=== PATIENT | female | born 1990 | race Caucasian/White ===

== ENCOUNTER → 2016-07-16 | Outpatient (CLI) | payer OTHER ==
[~2016-07-16] MED LIST: ALBU2SYP9; MTR600X PO; ONDA4TAB65 PO; OXYC-57 PO; PREN1TAB29
[2016-07-16 16:57] LABS: GTGD 50 Grams
== END | disposition home or self-care (01) ==
LOC: C.LAB1850 14:50
PROVIDERS: ATTEND Obstetrics & Gynecology
DX: Z34.92 Encounter for supervision of normal pregnancy, unspecified, second trimester (principal)

== ENCOUNTER → 2016-10-05 | Outpatient (CLI) | payer OTHER ==
[2016-10-05 17:12] LABS: GTGD 50 Grams
[2016-10-05 17:15] LABS: HEMATOCRIT 35.8 % (37-47)
[2016-10-05 17:21] LABS: URINE APPEARANCE CLEAR (CLEAR); URINE BILIRUBIN NEG (NEG); URINE COLOR YELLOW; URINE EPITHELIAL CELL AUTO >30 /lpf (0-5); URINE NITRITE NEG (NEG); UROBILINOGEN NEG (NEG)
[2016-10-05 17:25] LABS: MANUAL MICROSCOPIC REQUIRED? NO; REVIEW REQ? NO
== END | disposition home or self-care (01) ==
LOC: C.LAB1850 15:14
PROVIDERS: ATTEND Obstetrics & Gynecology
DX: Z34.00 Encounter for supervision of normal first pregnancy, unspecified trimester (principal)

== ENCOUNTER 2016-11-25 07:30 | Inpatient (IN) | payer OTHER ==
[~2016-11-25] VITALS: Ht 167.6 cm; Wt 102.7 kg
[2016-12-10] MEDS ORDERED: LACTATED RINGER'S 1000ML 1,000 ML IV PRN (18:02)
[2016-12-10] MEDS ORDERED: PENICILLIN G POTASSIUM IV 6 MU in DEXTROSE 5% 250ML 250 ML IV ONE (18:45)
[2016-12-10] MEDS: LACTATED RINGER'S 1000ML 1,000 ML IV SCH (19:21)
[2016-12-10 19:40] LABS: HEMATOCRIT 35.6 % (37-47); MEAN CELL VOLUME 87.7 fL (80-100); MEAN CORPUSCULAR HEMOGLOBIN 29.6 pg (25-34); MEAN CORPUSCULAR HGB CONC 33.7 g/dl (32-36); MEAN PLATELET VOLUME 10.7 fL (7.4-10.4); PLATELET COUNT 208 K/uL (130-400); RED BLOOD COUNT 4.06 M/uL (4.2-5.4)
[2016-12-10 19:59] VITALS: Ht 167.6 cm; Wt 102.7 kg
[2016-12-10] MEDS ORDERED: ONDA4TAB65 PO (20:04)
[2016-12-10] MEDS ORDERED: PREN1TAB29 (20:04)
[2016-12-10] MEDS ORDERED: ALBU2SYP9 (20:04)
[2016-12-10] MEDS ORDERED: LACTATED RINGER'S 1000ML 500 ML IV PRN (22:01)
[2016-12-10] MEDS: OXYTOCIN 30 UNITS/500ML NSS IV PRN (22:28)
[2016-12-10] MEDS: PENICILLIN G POTASSIUM IV 3 MU in DEXTROSE 5% 100ML 100 ML IV PRN (23:25)
[2016-12-11] MEDS ORDERED: FENTANYL 2MCG/ML ROPIV 1.25MG/ML 100ML BAG EPI ONE (02:26)
[2016-12-11] MEDS ORDERED: BUPIVACAINE 0.25% 30 ML VIAL ONE (02:26)
[2016-12-11] MEDS ORDERED: EpHEDrine SULFATE INJ 50 MG/ML AMP ONE ×2 (02:26→13:35)
[2016-12-11] MEDS ORDERED: FENTANYL CITRATE INJ 50 MCG/1 ML 2 ML VIAL ONE (02:26)
[2016-12-11] MEDS ORDERED: NALOXONE HCL INJ 1 MG in SODIUM CHLORIDE 0.9% 1000ML 1,000 ML IV PRN (03:20)
[2016-12-11] MEDS ORDERED: LACTATED RINGER'S 1000ML 500 ML IV PRN (03:20)
[2016-12-11] MEDS: LACTATED RINGER'S 1000ML 1,000 ML IV SCH ×3 (03:27→11:26)
[2016-12-11] MEDS ORDERED: NALOXONE HCL INJ 0.4 MG/1 ML VIAL/CARP IV PRN (03:30)
[2016-12-11] MEDS ORDERED: NALBUPHINE HCL INJ 10 MG/ML AMP IV PRN (03:30)
[2016-12-11] MEDS ORDERED: DiphenhydrAMINE HCL 50 MG/ML VIAL IV PRN (03:30)
[2016-12-11] MEDS ORDERED: ONDANSETRON INJ 2 MG/ML 2 ML VIAL IV PRN ×2 (03:30→15:00)
[2016-12-11] MEDS: PENICILLIN G POTASSIUM IV 3 MU in DEXTROSE 5% 100ML 100 ML IV PRN ×3 (03:44→11:19)
[2016-12-11] MEDS: EpHEDrine SULFATE INJ 50 MG/ML AMP IV PRN ×2 (04:55→05:11)
[2016-12-11] MEDS: FENTANYL 2MCG/ML ROPIV 1.25MG/ML 100ML BAG EPI PRN ×2 (06:56→12:35)
[2016-12-11] MEDS: OXYTOCIN 30 UNITS/500ML NSS IV PRN (06:56)
[2016-12-11] MEDS ORDERED: OXYTOCIN 30 UNITS/500ML NSS IV PRN ×2 (10:00→17:30)
[2016-12-11] MEDS ORDERED: LACTATED RINGER'S 1000ML 1,000 ML IV SCH ×2 (13:20→14:45)
[2016-12-11] MEDS ORDERED: CITRIC ACID/SODIUM CITRATE 15 ML UDC PO ONE (13:30)
[2016-12-11] MEDS ORDERED: SODIUM CHLORIDE 0.9% INJ 10 ML VIAL ONE (13:35)
[2016-12-11] MEDS ORDERED: LIDOCAINE/EPINEPHRINE 2% 1:200,000 20 ML SDV ONE (13:35)
[2016-12-11] MEDS ORDERED: PHENYLEPHRINE HCL INJ 10 MG/ML VIAL ONE (13:35)
[2016-12-11] MEDS ORDERED: CEFAZOLIN IV 3,000 MG in DEXTROSE 5% 50ML 50 ML IV ONE (13:45)
[2016-12-11] MEDS ORDERED: BENZOCAINE 20% AER SPR 82.5 GM CAN ONE (13:48)
[2016-12-11] MEDS ORDERED: OXYTOCIN INJ 10 UNITS/ML VIAL ONE (13:59)
[2016-12-11] MEDS ORDERED: MoRPHine SULFATE PF 1 MG/ML 10 ML AMP/VIAL ONE (14:03)
[2016-12-11] MEDS ORDERED: ONDANSETRON INJ 2 MG/ML 2 ML VIAL ONE (14:21)
[2016-12-11] MEDS ORDERED: HYDROCORTISONE ACETATE 25 MG SUPP PR PRN (14:45)
[2016-12-11] MEDS ORDERED: LANOLIN OINT EXT PRN ×2 (14:45)
[2016-12-11] MEDS ORDERED: SUPERCREAM 0.870 % 15GM JAR EXT PRN (14:45)
[2016-12-11] MEDS ORDERED: SENNA 8.6 MG TAB PO PRN (14:45)
[2016-12-11] MEDS ORDERED: MAGNESIUM HYDROXIDE SUSP 30 ML UDC PO PRN (14:45)
[2016-12-11] MEDS ORDERED: BENZOCAINE 20% AER SPR 82.5 GM CAN EXT PRN (14:45)
--- NOTE | 2016-12-11 14:53 | Anesthesiology Progress Note ---
Anesthesia Post Op Note Date & Time Dec 11, 2016 at 14:52 Notes Mental Status: alert / awake / arousable, participated in evaluation Pt Amnestic to Procedure: Yes Nausea / Vomiting: adequately controlled Pain: adequately controlled Airway Patency, RR, SpO2: stable & adequate BP & HR: stable & adequate Hydration State: stable & adequate Anesthetic Complications: no major complications apparent
[2016-12-11] MEDS ORDERED: FENTANYL CITRATE INJ 50 MCG/1 ML 2 ML VIAL IV PRN (15:00)
[2016-12-11] MEDS ORDERED: MEPERIDINE HCL 25 MG/ML CARP IV PRN (15:00)
[2016-12-11] MEDS ORDERED: KETOROLAC TROMETHAMINE 30 MG/ML VIAL IV. PRN (15:00)
[2016-12-11] MEDS ORDERED: MoRPHine SULFATE PF 1 MG/ML 10 ML AMP/VIAL EPI PRN (15:00)
[2016-12-11] MEDS ORDERED: ATROPINE SULFATE 0.1 MG/ML 5ML SYR IV PRN (15:00)
[2016-12-11] MEDS ORDERED: CONTINUE MEDICATION ONE (15:00)
[2016-12-11] MEDS ORDERED: NO NARCOTICS OR SEDATIVES SCH (15:00)
[2016-12-11] MEDS ORDERED: EpHEDrine SULFATE INJ 50 MG/ML AMP IV PRN (15:00)
[2016-12-11] MEDS ORDERED: KETOROLAC TROMETHAMINE 30 MG/ML VIAL ONE (15:21)
[2016-12-11] MEDS: OXYTOCIN INJ 20 UNITS in LACTATED RINGER'S 1000ML 1,000 ML IV SCH ×2 (15:37→17:49)
--- NOTE | 2016-12-11 15:41 | [facility] Post Operative Brief Note ---
Immediate Operative Summary Operative Date Dec 11, 2016. Pre-Operative Diagnosis 1. IUP at 41 weeks 2. Failure to progress Post-Operative Diagnosis same Procedure(s) Performed Primary caesarean section with the of a live female child at 1416. Surgeon Dr[address] Priyank Thompson [employer] Surgeon(s) rn Estimated Blood Loss 500 ml Findings mild uterine septum Specimens A: placenta-hold B: Cord blood C: Cord gas Drains Nieto Anesthesia Epidural Complication(s) None Disposition L&D
--- NOTE | 2016-12-11 16:12 | OPERATIVE REPORT ---
DATE OF OPERATION: 12/11/2016 PREOPERATIVE DIAGNOSES: Intrauterine at 41 weeks for failure to progress. POSTOPERATIVE DIAGNOSIS: Same with mildly septate uterus. PROCEDURE: Primary low segment section transverse. SURGEON: Dr. Thompson. CARGO SERVICES COORDINATOR: Olamide Dooley, nurse. ESTIMATED BLOOD LOSS: 500 mL. FINDINGS: Mild uterine septa. ANESTHETIC: Epidural. SPECIMENS: Cord blood and cord gases. DRAINS: Nieto catheter. COMPLICATIONS: None. DISPOSITION: Labor and delivery. DESCRIPTION OF PROCEDURE: The patient's epidural was increased to allow for anesthesia for this section. Once this was done, of note her Nieto catheter had been placed by nursing. Pickups with teeth were used to test the skin area and was found to be adequate block for . Scalpel was used to make an incision low transverse Pfannenstiel dissecting through subcutaneous fat to the fascia in the midline. Fascia dissected laterally with curved Pompa scissors and then rectus muscles released from the fascia superiorly and inferiorly with curved Mayos. Rectus muscle split, peritoneal cavity entered in a superior location and then opening allowed for exposure. Bladder retractor was placed and then Metzenbaums used to dissect away the bladder flap. Once this was done, a low transverse incision made with scalpel. Entry was done bluntly with the fourdrinier operator's finger. Fluid was clear. There was no nuchal cord. Baby was delivered by flexion of the head and then pressure on the abdomen. No excessive force was used. Live vigorous infant. After delivery of head baby was crying and then delivered by gentle traction. Cord clamped and cut. Cord gases obtained. Placenta removed manually. IV Pitocin started. Of note too IV Ancef was given preoperatively. Uterus was exteriorized to ensure all placenta was removed. There was a modest septum palpated in the uterus. The uterus was not bicornuate exteriorly shape. Otherwise, adnexa were normal. Uterus was closed in the usual fashion, running locked 0 Monocryl and second reinforcing 0 Monocryl. After generous irrigation and suction of the cul-de-sac and bladder flap regions, hemostasis was excellent. Uterus placed back in the peritoneal cavity and reinspected and hemostasis excellent. Fascia closed with 0 Vicryl, subcutaneous fat irrigated and closed with a 3-0 Vicryl, skin closed with 4-0 subcuticular Monocryl and Steri-Strips. Sponge and instrument counts correct. Urine was clear at the end of the procedure. I attest to the content of the Intraoperative Record and any orders documented therein. Any exceptions are noted below. MTDD
[2016-12-11] MEDS: SIMETHICONE 80 MG CHEW PO SCH ×2 (17:00→21:00)
[2016-12-11] MEDS ORDERED: METHYLERGONOVINE MALEATE 0.2 MG/ML AMP ONE (17:06)
[2016-12-11 17:59] LABS: HEMATOCRIT 30.4 % (37-47)
[2016-12-11] MEDS ORDERED: NURSING VERBAL MED ORDER ONE (18:15)
[2016-12-11] MEDS ORDERED: MISOPROSTOL 200 MCG TAB PR SCH (18:30)
[2016-12-11] MEDS: DOCUSATE SODIUM 100 MG CAP PO SCH (20:00)
[2016-12-11 21:00] VITALS: O2SAT 100
[2016-12-11 22:00] VITALS: O2SAT 100
[2016-12-11 23:00] VITALS: O2SAT 98
[2016-12-11 23:20] VITALS: BP 109/72; PULSE 94; TEMP 36.7; O2SAT 100
[2016-12-12] VITALS (12 sets, daily range): BP systolic 106–120; BP diastolic 72–76; PULSE 87–94; TEMP 36.7–37; O2SAT 93–100
[2016-12-12] MEDS: OXYTOCIN INJ 20 UNITS in LACTATED RINGER'S 1000ML 1,000 ML IV SCH (03:26)
[2016-12-12 06:40] LABS: BASO % 0.1 %; BASO ABS # 0.01 K/uL (0-0.2); EOS % 0.6 %; HEMATOCRIT 26.3 % (37-47); IG% 0.5 %; LYMPH % 17.5 %; LYMPH ABS # 3.19 K/uL (1.2-3.4); MEAN CELL VOLUME 89.2 fL (80-100); MEAN CORPUSCULAR HEMOGLOBIN 29.2 pg (25-34); MEAN CORPUSCULAR HGB CONC 32.7 g/dl (32-36); MEAN PLATELET VOLUME 10.5 fL (7.4-10.4); MONO % 6.6 %; NEUT % 74.7 %; PLATELET COUNT 201 K/uL (130-400); RED BLOOD COUNT 2.95 M/uL (4.2-5.4); WHITE BLOOD COUNT 18.23 K/uL (4.8-10.8)
[2016-12-12 07:29] LABS: COMPLETE YES
--- NOTE | 2016-12-12 08:29 | Progress Note ---
Subjective Dec 12, 2016. Subjective conversation w/ patient, physical exam, chart review, lab review Ambulation: ambulating normally Voiding: no voiding problems Diet Tolerance: Regular Diet Lochia: Small Objective Vital Signs Date Time Temp Pulse Resp B/P (MAP) Pulse Ox O2 Delivery O2 Flow Rate FiO2 12/12/16 06:30 18 96 12/12/16 05:30 18 93 12/12/16 04:30 18 100 12/12/16 03:30 18 100 12/12/16 03:00 36.9 87 18 108/73 (85) 100 Room Air 12/12/16 02:30 18 100 12/12/16 01:30 18 100 12/12/16 00:30 18 100 12/11/16 23:20 36.7 94 18 109/72 (84) 100 Room Air 12/11/16 23:20 100 Room Air 12/11/16 23:20 18 100 12/11/16 23:00 18 98 12/11/16 22:00 16 100 12/11/16 21:00 100 Room Air 12/11/16 21:00 16 100 12/11/16 21:00 100 Room Air Physical Exam General Appearance: WELL-APPEARING Respiratory/Chest: lungs clear Abdomen: non tender Fundus: Firm Incision Description: Clean, Dry & Intact Extremities: no calf tenderness Laboratory Results Last 24 Hours Test 12/11/16 17:38 12/12/16 06:15 Hemoglobin 9.9 g/dL 8.6 g/dL Hematocrit 30.4 % 26.3 % White Blood Count 18.23 K/uL Red Blood Count 2.95 M/uL Mean Corpuscular Volume 89.2 fL Mean Corpuscular Hemoglobin 29.2 pg Mean Corpuscular Hemoglobin Concent 32.7 g/dl Platelet Count 201 K/uL Mean Platelet Volume 10.5 fL Neutrophils (%) (Auto) 74.7 % Lymphocytes (%) (Auto) 17.5 % Monocytes (%) (Auto) 6.6 % Eosinophils (%) (Auto) 0.6 % Basophils (%) (Auto) 0.1 % Neutrophils # (Auto) 13.63 K/uL Lymphocytes # (Auto) 3.19 K/uL Monocytes # (Auto) 1.20 K/uL Eosinophils # (Auto) 0.11 K/uL Basophils # (Auto) 0.01 K/uL RDW Standard Deviation 48.2 fL RDW Coefficient of Variation 14.6 % Immature Granulocyte % (Auto) 0.5 % Immature Granulocyte # (Auto) 0.09 K/uL Red Blood Cell Morphology Unremarkable Assessment and Plan Post-Op Day#: 1 Continue Routine Care: Bleeding improved.
[2016-12-12] MEDS ORDERED: DC INTRASPINAL MORPHINE SCH (08:30)
[2016-12-12] MEDS: SIMETHICONE 80 MG CHEW PO SCH ×4 (08:31→19:56)
[2016-12-12] MEDS ORDERED: ONDANSETRON INJ 2 MG/ML 2 ML VIAL IV PRN (08:31)
[2016-12-12] MEDS ORDERED: PROMETHAZINE HCL INJ 25 MG in SODIUM CHLORIDE 0.9% 50ML 50 ML IV PRN (08:31)
[2016-12-12] MEDS ORDERED: MEPERIDINE HCL 50 MG/ML CARP IV PRN ×2 (08:31)
[2016-12-12] MEDS ORDERED: ZOLPIDEM TARTRATE 5 MG TAB PO PRN (08:31)
[2016-12-12] MEDS ORDERED: DiphenhydrAMINE HCL 50 MG/ML VIAL IV PRN (08:31)
[2016-12-12] MEDS ORDERED: OXYCODONE/ACETAMINOPHEN 5-325 TAB PO PRN (08:31)
[2016-12-12] MEDS: DOCUSATE SODIUM 100 MG CAP PO SCH ×2 (08:31→19:56)
[2016-12-12] MEDS: PRENATAL VITAMIN TAB PO SCH (08:31)
[2016-12-12] MEDS: KETOROLAC TROMETHAMINE 30 MG/ML VIAL IV. PRN ×2 (08:39→14:57)
[2016-12-12] MEDS: OXYCODONE/ACETAMINOPHEN 5-325 TAB PO PRN (19:54)
[2016-12-12] MEDS: IBUPROFEN 600 MG TAB PO PRN (19:55)
[2016-12-12] MEDS ORDERED: BISACODYL 5 MG TABEC PO ONE (22:00)
[2016-12-13] VITALS: BP 103/70; PULSE 83; TEMP 36.7
[2016-12-13] MEDS: IBUPROFEN 600 MG TAB PO PRN ×5 (00:45→20:00)
[2016-12-13] MEDS: OXYCODONE/ACETAMINOPHEN 5-325 TAB PO PRN ×5 (00:46→20:01)
--- NOTE | 2016-12-13 06:08 | OB/GYN Progress Note ---
PLANT ACCOUNTANT Progress Note Date of Service Dec 13, 2016. Subjective conversation w/ patient Ambulation: ambulating normally Voiding: no voiding problems Passing Gas: Yes Diet Tolerance: Regular Diet Lochia: Small Feeding Type: Breast Feeding Pain: 2/10 controlled with pain meds Review of Systems Constitutional: No fever Respiratory: No shortness of breath Cardiac: No chest pain Abdomen: No nausea, No vomiting Female : No dysuria Objective Vital Signs Date Time Temp Pulse Resp B/P (MAP) Pulse Ox O2 Delivery O2 Flow Rate FiO2 12/13/16 00:00 36.7 83 18 103/70 (81) Room Air 12/12/16 15:20 37.0 94 18 120/76 (91) 100 Room Air 12/12/16 15:20 100 Room Air 12/12/16 13:00 36.7 94 20 112/75 (87) Room Air 12/12/16 08:30 20 100 12/12/16 07:30 20 100 12/12/16 07:30 Room Air 12/12/16 07:30 36.7 88 20 106/72 (83) 100 Room Air 12/12/16 06:30 18 96 Physical Exam General Appearance: WELL-APPEARING Respiratory/Chest: lungs clear, normal breath sounds, no respiratory distress Cardiovascular: regular rate, rhythm Abdomen: normal bowel sounds, non tender, soft Fundus: Firm, Relation to Umbilicus (1 finger breaths below) Incision Description: Clean, Dry & Intact Extremities: non-tender, + pedal edema (1+) Laboratory Results Last 24 Hours Test 12/12/16 06:15 12/13/16 06:00 White Blood Count 18.23 K/uL Red Blood Count 2.95 M/uL Hemoglobin 8.6 g/dL Hematocrit 26.3 % Mean Corpuscular Volume 89.2 fL Mean Corpuscular Hemoglobin 29.2 pg Mean Corpuscular Hemoglobin Concent 32.7 g/dl Platelet Count 201 K/uL Mean Platelet Volume 10.5 fL Neutrophils (%) (Auto) 74.7 % Lymphocytes (%) (Auto) 17.5 % Monocytes (%) (Auto) 6.6 % Eosinophils (%) (Auto) 0.6 % Basophils (%) (Auto) 0.1 % Neutrophils # (Auto) 13.63 K/uL Lymphocytes # (Auto) 3.19 K/uL Monocytes # (Auto) 1.20 K/uL Eosinophils # (Auto) 0.11 K/uL Basophils # (Auto) 0.01 K/uL RDW Standard Deviation 48.2 fL RDW Coefficient of Variation 14.6 % Immature Granulocyte % (Auto) 0.5 % Immature Granulocyte # (Auto) 0.09 K/uL Red Blood Cell Morphology Unremarkable Medications Current Inpatient Medications Medications (Trade) Dose Ordered Sig/Edvin Route Start Time Stop Time Status Last Admin Dose Admin Oxytocin 20 units/ Lactated Ringer's 1,002 ml @ 125 mls/hr Q8H1M IV 12/11/16 14:45 01/10/17 14:44 12/12/16 03:26 125 MLS/HR Lactated Ringer's 1,000 ml @ 125 mls/hr Q8H IV 12/11/16 14:45 01/10/17 14:44 Ketorolac Tromethamine (Toradol Inj) 30 mg Q6H PRN IV. 12/12/16 08:31 12/17/16 08:30 12/12/16 14:57 30 MG Meperidine HCl (Demerol Inj) 50 mg Q4H PRN IV 12/12/16 08:31 12/26/16 08:30 Meperidine HCl (Demerol Inj) 75 mg Q4H PRN IV 12/12/16 08:31 12/26/16 08:30 Oxycodone/ Acetaminophen (Percocet 5-325mg Tab) 1 tab Q4H PRN PO 12/12/16 08:31 12/26/16 08:30 12/13/16 00:46 1 TAB Oxycodone/ Acetaminophen (Percocet 5-325mg Tab) 2 tab Q4H PRN PO 12/12/16 08:31 12/26/16 08:30 Ibuprofen (Motrin Tab) 600 mg Q4H PRN PO 12/11/16 14:45 01/10/17 14:44 12/13/16 00:45 600 MG Promethazine HCl 25 mg/Sodium Chloride 51 ml @ 204 mls/hr Q4H PRN IV 12/12/16 08:31 01/11/17 08:30 Ondansetron HCl (Zofran Inj) 4 mg Q4H PRN IV 12/12/16 08:31 01/11/17 08:30 Prenat Multivit/ [place]/Iron/Folic Ac ( Vitamin Tab) 1 tab DAILY PO 12/12/16 08:00 01/11/17 07:59 12/12/16 08:31 1 TAB Bisacodyl (Dulcolax Supp) 10 mg PRN PRN [place] 12/13/16 22:45 01/12/17 22:44 Docusate Sodium (coLACE CAP) 100 mg BID PO 12/11/16 20:00 01/10/17 19:59 12/12/16 19:56 100 MG Magnesium Hydroxide (Milk Of Magnesia Susp) 30 ml HS PRN PO 12/11/16 14:45 01/10/17 14:44 Cocaine HCl (Supercream 0.870% Cr) BID PRN EXT 12/11/16 14:45 12/25/16 14:44 Lanolin (Lanolin Oint) PRN PRN EXT 12/11/16 14:45 01/10/17 14:44 Hydrocortisone Acetate (Anusol Hc Supp) 25 mg BID PRN [place] 12/11/16 14:45 01/10/17 14:44 Benzocaine (Dermoplast Aero Spr) 1 appln PRN PRN EXT 12/11/16 14:45 01/10/17 14:44 Zolpidem Tartrate (Ambien Tab) 5 mg HSZ PRN PO 12/12/16 08:31 01/11/17 08:30 Simethicone (Mylicon Chew Tab) 80 mg QID PO 12/11/16 17:00 01/10/17 16:59 12/12/16 19:56 80 MG Diphenhydramine HCl (Benadryl Cap) 25 mg QID PRN PO 12/12/16 08:31 01/11/17 08:30 Diphenhydramine HCl (Benadryl Inj) 25 mg QID PRN IV 12/12/16 08:31 01/11/17 08:30 Senna (Senokot Tab) 17.2 mg HS PRN PO 12/11/16 14:45 01/10/17 14:44 Oxytocin (Pitocin IV) 30 units UD PRN IV 12/11/16 17:30 01/10/17 17:29 Assessment and Plan Post-Op Day Number: 2 Continue Routine Care: A/P: This is a 26 y/o female, , s/p [ for FTP. She is ambulating and clinically stable. Plan: - Vitals signs are reviewed and WNL (Tmax 37 ) - Last Hgb is 8.6 (12/12) --> pending this AM - Blood type A-, GBS pos, Rubella Immune - Routine care - Encourage ambulation, monitor and control pain with medication as needed, continue with regular diet as tolerated and monitor lochia - Stool softeners and sitz bath recommended - Encourage breast feeding and educate about breast feeding Resident Physician Supervision Note: I interviewed and examined the patient. Discussed with Dr. Carr and agree with findings and plan as documented in the note. Any exceptions or clarifications are listed here: [None] Documented By: Gen Thompson Resident Involvement: Resident Care Provided Care Provided: OB Delivery
[2016-12-13 07:21] LABS: HEMATOCRIT 23.8 % (37-47)
[2016-12-13 07:36] VITALS: BP 108/70; PULSE 90; TEMP 36.7; O2SAT 100
[2016-12-13] MEDS: PRENATAL VITAMIN TAB PO SCH (07:44)
[2016-12-13] MEDS: SIMETHICONE 80 MG CHEW PO SCH ×4 (07:44→20:00)
[2016-12-13] MEDS: DOCUSATE SODIUM 100 MG CAP PO SCH ×2 (07:44→19:59)
[2016-12-13 16:00] VITALS: BP 130/82; PULSE 82; TEMP 36.8; O2SAT 100
[2016-12-13] MEDS ORDERED: BISACODYL 10 MG SUPP PR PRN (22:45)
[2016-12-13 23:50] VITALS: BP 124/78; PULSE 92; TEMP 36.7
--- NOTE | 2016-12-14 01:59 | OB/GYN Progress Note ---
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 Subjective conversation w/ patient, physical exam, chart review, lab review Ambulation: ambulating normally Voiding: no voiding problems Diet Tolerance: Regular Diet Lochia: Small Feeding Type: Bottle Feeding Pain: 08/16 Review of Systems Constitutional: No fever Respiratory: No shortness of breath Cardiac: No chest pain Abdomen: No nausea, No vomiting Female : No dysuria Objective Vital Signs Date Time Temp Pulse Resp B/P (MAP) Pulse Ox O2 Delivery O2 Flow Rate FiO2 12/13/16 23:50 36.7 92 18 124/78 (93) Room Air 12/13/16 16:00 36.8 82 18 130/82 (98) 100 Room Air 12/13/16 07:36 36.7 90 20 108/70 (83) 100 Room Air Physical Exam General Appearance: WELL-APPEARING Respiratory/Chest: lungs clear, normal breath sounds, no respiratory distress Cardiovascular: regular rate, rhythm Abdomen: normal bowel sounds, non tender, soft Fundus: Firm, Relation to Umbilicus (1 FB) Extremities: non-tender, + pedal edema (1+) Laboratory Results Last 24 Hours Test 12/13/16 06:43 Hemoglobin 8.1 g/dL Hematocrit 23.8 % Medications Current Inpatient Medications Medications (Trade) Dose Ordered Sig/Edvin Route Start Time Stop Time Status Last Admin Dose Admin Oxytocin 20 units/ Lactated Ringer's 1,002 ml @ 125 mls/hr Q8H1M IV 12/11/16 14:45 01/10/17 14:44 12/12/16 03:26 125 MLS/HR Lactated Ringer's 1,000 ml @ 125 mls/hr Q8H IV 12/11/16 14:45 01/10/17 14:44 Ketorolac Tromethamine (Toradol Inj) 30 mg Q6H PRN IV. 12/12/16 08:31 12/17/16 08:30 12/12/16 14:57 30 MG Meperidine HCl (Demerol Inj) 50 mg Q4H PRN IV 12/12/16 08:31 12/26/16 08:30 Meperidine HCl (Demerol Inj) 75 mg Q4H PRN IV 12/12/16 08:31 12/26/16 08:30 Oxycodone/ Acetaminophen (Percocet 5-325mg Tab) 1 tab Q4H PRN PO 12/12/16 08:31 12/26/16 08:30 12/13/16 20:01 1 TAB Oxycodone/ Acetaminophen (Percocet 5-325mg Tab) 2 tab Q4H PRN PO 12/12/16 08:31 12/26/16 08:30 Ibuprofen (Motrin Tab) 600 mg Q4H PRN PO 12/11/16 14:45 01/10/17 14:44 12/13/16 20:00 600 MG Promethazine HCl 25 mg/Sodium Chloride 51 ml @ 204 mls/hr Q4H PRN IV 12/12/16 08:31 01/11/17 08:30 Ondansetron HCl (Zofran Inj) 4 mg Q4H PRN IV 12/12/16 08:31 01/11/17 08:30 Prenat Multivit/ Customer Support Advisor/Iron/Folic Ac ( Vitamin Tab) 1 tab DAILY PO 12/12/16 08:00 01/11/17 07:59 12/13/16 07:44 1 TAB Bisacodyl (Dulcolax Supp) 10 mg PRN PRN [place] 12/13/16 22:45 01/12/17 22:44 Docusate Sodium (coLACE CAP) 100 mg BID PO 12/11/16 20:00 01/10/17 19:59 12/13/16 19:59 100 MG Magnesium Hydroxide (Milk Of Magnesia Susp) 30 ml HS PRN PO 12/11/16 14:45 01/10/17 14:44 Cocaine HCl (Supercream 0.870% Cr) BID PRN EXT 12/11/16 14:45 12/25/16 14:44 Lanolin (Lanolin Oint) PRN PRN EXT 12/11/16 14:45 01/10/17 14:44 Hydrocortisone Acetate (Anusol Hc Supp) 25 mg BID PRN [place] 12/11/16 14:45 01/10/17 14:44 Benzocaine (Dermoplast Aero Spr) 1 appln PRN PRN EXT 12/11/16 14:45 01/10/17 14:44 Zolpidem Tartrate (Ambien Tab) 5 mg HSZ PRN PO 12/12/16 08:31 01/11/17 08:30 Simethicone (Mylicon Chew Tab) 80 mg QID PO 12/11/16 17:00 01/10/17 16:59 12/13/16 20:00 80 MG Diphenhydramine HCl (Benadryl Cap) 25 mg QID PRN PO 12/12/16 08:31 01/11/17 08:30 Diphenhydramine HCl (Benadryl Inj) 25 mg QID PRN IV 12/12/16 08:31 01/11/17 08:30 Senna (Senokot Tab) 17.2 mg HS PRN PO 12/11/16 14:45 01/10/17 14:44 Oxytocin (Pitocin IV) 30 units UD PRN IV 12/11/16 17:30 01/10/17 17:29 Assessment and Plan Post-Op Day Number: 3 Continue Routine Care: Resident Physician Supervision Note: I interviewed and examined the patient. Discussed with Dr. Carr and agree with findings and plan as documented in the note. Any exceptions or clarifications are listed here: [None] Documented By: Meenu Jimenez Debra A/P: This is a 26 y/o female, POD#3, s/p for FTP. She is ambulating and clinically stable to discharge. - Vital signs are reviewed and WNL (Tmax 37 ) - Last Hgb 8.1 (12/13) - Blood type A-, GBS pos, Rubella Immune - No signs of depression. - Routine post operative care - Discussed resting, feeding, pain control, mastitis, control, follow up in 6 weeks and reasons to call sooner, if necessary. - Continue with pain medication as needed, and continue vitamins. - Encourage breast feeding and educate about breast feeding - Patient understands and keen for home. - Plan to discharge home Resident Involvement: Resident Care Provided Care Provided: OB Delivery
--- NOTE | 2016-12-14 02:02 | Discharge Instructions ---
Discharge Instructions Date of Service Dec 14, 2016. Admission Reason for Admission: Induction Discharge Discharge Diagnosis / Problem: after delivery via Discharge Goals Goal(s): Routine recovery after delivery Medications Continue Dispensed Medications: supercream, dermaplast, tucks, lansinoh Activity Recommendations Activity Limitations: per Instructions/Follow-up section . Instructions / Follow-Up Instructions / Follow-Up ACTIVITY RECOMMENDATIONS: * Gradual return to full activity over the next 2-3 weeks. * No lifting - nothing heavier than baby over the next 2-3 weeks. * Do not engage in vigorous exercise, sexual activity or sports until cleared by your physician. * Do not drive or operate any motorized equipment until cleared by your physician. * You may shower/bathe daily. MEDICATIONS: For discomfort or pain, you may use Acetaminophen (Tylenol), Ibuprofen (Advil), or Naproxen (Aleve) following the package directions. For constipation you may use Colace following the package directions. BREAST CARE: If you are not breast feeding: * Wear a supportive bra 24 hours a day for one to two weeks. * Avoid stimulating your breasts and nipples as much as possible during the first few weeks after delivery. * When taking a shower, have the warm water hit your back, not breasts. * When your breasts feel full, apply ice packs. Usually three to four times a day helps ease the discomfort. * Take a mild pain medication (Tylenol / Motrin) when you are uncomfortable. If breast feeding: * Use breast milk to lubricate nipples. Lansinoh cream may be used for sore nipples. You do not need to remove cream prior to breast feeding. If using a different brand of cream, check the label for directions regarding removal of cream prior to nursing. * Wear a supportive bra. * If having problems with breasts or breast feeding, call a call center consultant or your health care provider. SPECIAL CARE INSTRUCTIONS: When you are discharged from the hospital, it is important for you to follow the instructions listed below: * During the first week at home, you should be able to care for yourself and your baby. In addition, the usual light household activities are encouraged. * Limit your activities to the way you feel. Do not try to clean the house or move furniture. Be sensible. * If you actively engage in sports and have done so up until the time of your delivery, you may resume these activities as soon as you feel able. This may take up to one month or even longer. Use good judgment. * Continue to take your vitamins for at least six weeks after the of your baby. * Your diet need not be limited unless you were on a special diet before your delivery. Breast-feeding mothers need around 2500 calories per day and at least 64-80 ounces of fluid per day (8 to 10 glasses). * You should eat foods from the four major food groups. Crash diets or fad diets are to be avoided. Eating lean meats, fresh fruits and vegetables, low-fat dairy products, high fiber foods and a regular exercise program, will help you get back to your pre- weight without putting your health at risk. * Constipation is sometimes a problem after delivery. Take a mild laxative as needed. If breast feeding, Milk of Magnesia is acceptable to use. You may use a suppository or Fleets enema. * A daily shower or tub bath is suggested. Wash incision daily with warm soapy water and pat dry. It doesn't need to be covered unless drainage is present. * A bloody vaginal discharge will usually continue until around four weeks . A small amount of bleeding may continue for as long as six weeks. Vaginal discharge changes from the bright red bleeding after delivery to pink then brownish and finally yellowish-pink before becoming white and disappearing. * Bleeding may increase with activity. Your first period may come in 4-8 weeks. If you are breast feeding, your period may be delayed even longer. * [place] (sex) can begin whenever both you and your partner feel comfortable and do not have any form of genital infection. It is recommended that you wait at least six weeks for internal and external healing to occur. If you have questions, please talk to your health care practitioner. A condom should be used to prevent infection and . * Foreplay, gentle intercourse and lubrication is very important the first several times to prevent pain. A water-based lubricant such as K-Y jelly or Astroglide may be used. * If you have RH negative blood and your baby is RH positive, you will receive RHOGAM by injection prior to discharge. The nurse will give you a card to keep with you that has the date and place that you received RHOGAM after delivery. * During your care, you had a Rubella screen done to check for the presence of rubella antibodies in your blood. If your test was negative, you will receive a Rubella vaccine prior to discharge. This vaccine may cause a fever, soreness at the injection site and flu-like symptoms. If these symptoms persist, notify your health care practitioner. is not advised for one month after a Rubella vaccine. * Verbalizes understanding of car seat law as reviewed with patient nursing. * Car Seat hand-out given and reviewed with patient by nursing. * Shaken baby information reviewed with patient by nursing. Call you doctor if: * Heavy bleeding (saturating several pads an hour) or passing clots the size of your fist. * A fever >101 degrees F (38.3 degrees C) on two occasions four hours apart and /or chills. * Unusual pain in the pelvic or vaginal areas. * Call the doctor for any increased redness, drainage or swelling around the incision and any pain unrelieved by prescribed pain medication. * "Baby Blues" lasting longer than two weeks. If you have any questions or concerns, call your health care practitioner at . FOLLOW UP VISIT: * Please call the office at to schedule a 6 week examination. It is important you keep this appointment. It is important for you to make arrangements for either yearly or twice yearly check-ups thereafter. Current Hospital Diet Patient's current hospital diet: Regular Diet Discharge Diet Recommended Diet: Regular Diet Procedures Procedures Performed: Primary caesarean section with the of a live female child at 1416. Pending Studies Studies pending at discharge: no Medical Emergencies . Who to Call and When: Medical Emergencies: If at any time you feel your situation is an emergency, please call 110 immediately. . Non-Emergent Contact Non-Emergency issues call your: Team Automobile Assembler . . "Provider Documentation" section prepared by Cielo Carr. . VTE Core Measure Inpt VTE Proph given/why not?: SCD's
[2016-12-14] MEDS: OXYCODONE/ACETAMINOPHEN 5-325 TAB PO PRN ×2 (04:56→09:04)
[2016-12-14] MEDS: IBUPROFEN 600 MG TAB PO PRN ×2 (04:56→09:04)
[2016-12-14] MEDS ORDERED: MTR600X PO (07:20)
[2016-12-14] MEDS ORDERED: OXYC-57 PO (07:20)
[2016-12-14 07:36] VITALS: BP 124/72; PULSE 82; TEMP 36.6; O2SAT 100
[2016-12-14 08:20] VITALS: BP_DIAS 72; PULSE 82; TEMP 36.6
[2016-12-14] MEDS: DOCUSATE SODIUM 100 MG CAP PO SCH (09:03)
[2016-12-14] MEDS: SIMETHICONE 80 MG CHEW PO SCH (09:03)
[2016-12-14] MEDS: PRENATAL VITAMIN TAB PO SCH (09:04)
--- NOTE | 2016-12-17 00:20 | DISCHARGE SUMMARY ---
Inna had section on 12/11/2016. The procedure was uncomplicated. By 12/14/2016 she met discharge criteria. She was ambulating well, tolerating an oral diet. Oral pain medicine controlled her pain. She was voiding well and had no extremity pain. PHYSICAL EXAMINATION: VITAL SIGNS: Stable. She was afebrile. CHEST: Clear. ABDOMEN: Soft, nontender. Incision clean, dry and intact. Hemoglobin 8.1. IMPRESSION AND PLAN: Postop day #3. Discharged home. Percocet, Motrin, and iron advised.
== END 2016-12-14 09:30 | disposition home or self-care (01) | DRG 765 ==
LOC: EDSTATUS 07:30 → C.LD 12-10 17:38 → C.OBG 12-11 21:11
PROVIDERS: ADMIT Obstetrics & Gynecology; ATTEND Obstetrics & Gynecology
PROC: 10907ZC Drainage of Amniotic Fluid, Therapeutic from Products of Conception, Via Natural or Artificial Opening (ICD-10-PCS; principal; 2016-12-11 14:12)
PROC: 10D00Z1 Extraction of Products of Conception, Low, Open Approach (ICD-10-PCS; principal; 2016-12-11 14:12)
PROC: 10H07YZ Insertion of Other Device into Products of Conception, Via Natural or Artificial Opening (ICD-10-PCS; principal; 2016-12-11 14:12)
PROC: 3E033VJ Introduction of Other Hormone into Peripheral Vein, Percutaneous Approach (ICD-10-PCS; principal; 2016-12-11 14:12)
DX: O48.0 Post-term pregnancy (principal); F84.0 Autistic disorder; Z37.0 Single live birth; O26.893 Other specified pregnancy related conditions, third trimester; Z67.11 Type A blood, Rh negative; O62.2 Other uterine inertia; O61.0 Failed medical induction of labor; O99.824 Streptococcus B carrier state complicating childbirth; O99.52 Diseases of the respiratory system complicating childbirth; J45.909 Unspecified asthma, uncomplicated; O99.330 Smoking (tobacco) complicating pregnancy, unspecified trimester; F17.210 Nicotine dependence, cigarettes, uncomplicated; O34.593 Maternal care for other abnormalities of gravid uterus, third trimester; O99.214 Obesity complicating childbirth; E66.9 Obesity, unspecified; Z68.36 Body mass index [BMI] 36.0-36.9, adult; Z3A.41 41 weeks gestation of pregnancy; Q51.2 Other doubling of uterus; Z79.899 Other long term (current) drug therapy; O99.344 Other mental disorders complicating childbirth